=== PATIENT | male | born 1975 | race American Indian/Alaskan Native ===

== ENCOUNTER 2021-05-22 21:58 | Emergency (ER) | payer SELFPAY ==
[2021-05-22] MEDS ORDERED: ETOMIDATE 20 MG/10 ML INJ IV ONE (22:34)
[2021-05-22] MEDS ORDERED: MORPHINE 4 MG/1 ML INJ IV ONE (22:34)
[2021-05-22] MEDS ORDERED: ONDANSETRON 4 MG/2 ML INJ IV ONE (22:34)
[2021-05-22] MEDS ORDERED: SODIUM CHLORIDE 0.9% 1000 ML 1,000 ML IV ONE (22:34)
--- NOTE | 2021-05-22 22:38 | XRay Report ---
Right shoulder 2 views INDICATION: Right shoulder. IMPRESSION: Anterior-inferior dislocation of the right glenohumeral joint. Signer Name: Carlos Coe MD Signed: 05/22/2021 10:33 PM Workstation Name: [email or web address]
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
--- NOTE | 2021-05-23 00:47 | XRay Report ---
Right shoulder 2 views INDICATION: Right shoulder pain IMPRESSION: Successful reduction of right shoulder dislocation. Signer Name: Carlos Coe MD Signed: 05/23/2021 12:43 AM Workstation Name: [email or web address]
[2021-05-23 00:52] VITALS: BP 152/96
== END 2021-05-23 01:57 | disposition home or self-care (01) ==
LOC: ED 21:58
DX: S43.084A Other dislocation of right shoulder joint, initial encounter (principal); I10 Essential (primary) hypertension; Z98.890 Other specified postprocedural states; X50.1XXA Overexertion from prolonged static or awkward postures, initial encounter; Y93.89 Activity, other specified; Y92.89 Other specified places as the place of occurrence of the external cause; Y99.8 Other external cause status
CPT/HCPCS: 23650; 73030; 96361; 96374; 96375; 99284; J2270; J2405; J3490; J7030; Q0162